=== PATIENT | female | born 1965 | race Caucasian/White ===

== ENCOUNTER 2019-05-23 17:03 | Emergency (ER) | payer BC, OTHER ==
[2016-04-02 12:39] VITALS: Wt 79.4 kg
[~2019-05-23 17:03] MED LIST: ABILIF5PT PO; ALBU8.5H12 IH; ALLO100T70 PO; ALPR-445 PO; ALPR-460 PO; AMOX-559 PO; AMOX500T10 PO; ARI2 PO; ASPI-1471 PO; CEFT1VIA63 IJ; CHOL100052 PO; DIA5 PO; DIAZ-308 PO; ESCI10TA8 PO; FLUV100C PO; FLUV100T21 PO; GABA-547 PO; HYDR-653 PO; HYDR2TAB4 PO; IBUP800T37 PO; LITH300T5 PO; MIRT-1 PO; MIRT7.5T2 PO; OMEP-218 PO; PARO-243 PO; PRED20TA6 PO; VITA0.4T11 PO
[2019-05-23] MEDS ORDERED: FLUO-176 PO (17:14)
[2019-05-23] MEDS ORDERED: DIPHTH/TETANUS/ACEL. PERTUSSIS IM ONLY ONE (17:30)
--- NOTE | 2019-05-23 17:35 | ER Report ---
History and Physical Time Seen By MD: 17:20 Hx. of Stated Complaint: cut finger on hedge trimmers HPI/ROS CHIEF COMPLAINT: Laceration to left index finger HISTORY OF PRESENT ILLNESS: 53-year-old female patient presents to emergency room with complaint of laceration to the left index finger. Patient states she was trimming her hedge with hedge trimmers when she cut her left index finger. Patient states she has a fair amount of pain. She also has some throbbing. She denies any numbness or tingling to her finger. She is able to move the finger without any problems. She states she is unsure of her last tetanus shot. Allergies: Coded Allergies: codeine (Verified Allergy, Unknown, GI DISTRESS, 05/23/19) gluten (Verified Allergy, Unknown, 05/23/19) Home Meds Active Scripts Hydrocodone Bit/Acetaminophen (HYDROCODON-ACETAMINOPHEN 5-325) 1 Each Tablet, 1 EACH PO Q4-6H PRN for PAIN, #12 TAB Prov:DIO BURTON [facility] 05/23/19 Cephalexin 500 Mg Tab (KEFLEX 500 MG TAB) 500 Mg Tablet, 500 MG PO Q6H, #28 TAB Prov:DIO BURTON [facility] 05/23/19 Reported Medications Fluoxetine Hcl (FLUOXETINE HCL) 10 Mg Capsule, 10 MG PO QDAY, CAPSULE 05/23/19 Discontinued Reported Medications Omeprazole Magnesium (PRILOSEC OTC) 20 Mg Tablet.dr, 1 TAB PO QDAY, TAB 12/07/17 Fluvoxamine Maleate (FLUVOXAMINE MALEATE) 100 Mg Cap.er.24h, 100 MG PO 12/07/17 [place] Carbonate (LITHOBID) 300 Mg Tablet.er, 300 MG PO QHS, #60 1 Refill 04/07/16 Aripiprazole (ABILIFY) 5 Mg Tablet, 5 MG PO QHS, #30 TAB 1 Refill 04/02/16 Diazepam (DIAZEPAM) 5 Mg Tablet, 5 MG PO Q6H PRN for ANXIETY, TAB 04/02/16 Discontinued Scripts Amoxicillin/Pot Clav 875-125 Mg Tab (AUGMENTIN 875-125 TABLET) 1 Each Tablet, 1 TAB PO Q12H for 10 Days, #20 TAB Prov:RISSA NUÑEZ JR, MD 12/05/17 Ibuprofen (IBUPROFEN) 800 Mg Tablet, 1 TAB PO Q8H, #30 TAB Take with food every 8 hours. 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 Patient has surgical history of bilateral mastectomy, right ear repair. Patient has a family medical history of diabetes. Reviewed Nurses Notes: Yes Hx Smoking: No Smoking Status: Never Smoker Exposure to Second Hand Smoke?: Yes (CHILDHOOD) Hx Substance Use Disorder: No Hx Alcohol Use: Yes Constitutional Vital Sign - Last 24 Hours 05/23/19 05/23/19 05/23/19 05/23/19 17:06 17:08 17:18 17:30 Pulse 106 101 Resp 18 B/P (MAP) 164/109 (127) 164/109 144/90 (108) Pulse Ox 92 94 05/23/19 05/23/19 05/23/19 05/23/19 17:33 17:48 18:00 18:03 Pulse 92 98 99 B/P (MAP) 140/89 (106) Pulse Ox 95 85 90 05/23/19 05/23/19 05/23/19 05/23/19 18:18 18:30 18:33 18:48 Pulse 92 94 87 B/P (MAP) 134/81 (98) Pulse Ox 92 90 95 05/23/19 05/23/19 05/23/19 05/23/19 18:53 19:00 19:08 19:23 Pulse ? B/P (MAP) 154/88 (110) 05/23/19 05/23/19 05/23/19 05/23/19 19:30 19:38 19:53 20:00 Pulse ? B/P (MAP) 142/85 (104) ???/??? (1665) 05/23/19 05/23/19 20:08 20:23 Pulse ? Physical Exam General appearance: Alert no distress. Respiratory: Chest is non tender, lungs are clear to auscultation. Cardiac: Regular rate and rhythm. Skin: Patient has laceration to the left index finger on the lateral side. Measures approximately 1.5 cm in length. It does go down to subcutaneous tissue. DIFFERENTIAL DIAGNOSIS: After history and physical exam differential diagnosis was considered for laceration, fracture, ligamentous injury. Medical Decision Making EKG/Imaging Imaging HAND COMPLETE LEFT Indication: Laceration to the second digit. Comparison: None Available. Findings: 3 views of the left hand. There is a mildly displaced fracture of the proximal radial corner of the distal phalanx of the second left finger. This extends to the articular surface. There is associated soft tissue disruption without radiopaque foreign body. No other bony or joint abnormality. IMPRESSION: 1. Mildly displaced fracture of the proximal radial corner of the distal phalanx of the second left finger. Soft tissue disruption. Report Dictated By: Jude Jo at 05/23/2019 6:34 PM Report E-Signed By: Jude Jo at 05/23/2019 6:37 PM ED Course/Re-evaluation ED Course Patient was admitted to exam room, history and physical were obtained. D ifferential diagnoses were considered. On examination lungs are clear, heart is regular, abdomen is soft and nontender. Patient does have a laceration to the lateral aspect of the left index finger. Patient has good strength with flexion and extension. X-rays done of the finger which shows a fracture of the proximal end of the distal phalanx on the radial side. The finger was anesthetized, cleaned and repaired described below. Patient was given a gram of Ancef through her IV. I discussed the case with Dr. Han, orthopedist. He felt that the patient can be discharged home, follow-up with Dr. Mccain on Sunday. Patient was restarted on antibiotics. I discussed plan with the patient, she verbalized understanding and agreement. We will go ahead and give her a limited supply of pain medication to help with the pain. She is to ice her finger. She is take ibuprofen as needed for pain. She is return to the emergency room if condition worsens. Patient verbalized understanding and agreement with plan. Procedure: Laceration repair. Verbal consent was obtained from the patient. The 5 cm laceration on the left index finger was anesthetized in the usual fashion. The wound was scrubbed, draped and explored to its base with a gloved finger. There were no deep structures involved. No tendon injury was identified. The wound was repaired with 9 simple interrupted sutures using 5-0 Prolene material. The wound repair was simple. The procedure was performed by myself. Procedure: Splint placement. A aluminum finger splint was applied. After application of the splint I returned and re-examined the patient. The splint was adequately immobilizing the joint and distal to the splint the patient's circulation and sensation was intact. Decision to Disposition Date: May 23, 2019 Decision to Disposition Time: 19:59 Depart Departure Latest Vital Signs Vital Signs Date Time Temp Pulse Resp B/P (MAP) Pulse Ox O2 Delivery O2 Flow Rate FiO2 05/23/19 20:23 ??? 05/23/19 20:00 ???/??? (1665) 05/23/19 18:48 95 05/23/19 17:08 18 Impression: Primary Impression: Phalanx, distal fracture of finger Additional Impression: Laceration of finger Condition: Improved Disposition: HOME OR SELF-CARE Referrals: VIV STOKES (PCP) CAROLE MCCAIN MD New Scripts Hydrocodone Bit/Acetaminophen (HYDROCODON-ACETAMINOPHEN 5-325) 1 Each Tablet 1 EACH PO Q4-6H PRN for PAIN, #12 TAB Prov: DIO BURTON 05/23/19 Cephalexin 500 Mg Tab (KEFLEX 500 MG TAB) 500 Mg Tablet 500 MG PO Q6H, #28 TAB Prov: DIO BURTON 05/23/19 Patient Instructions: Finger Fracture (ED), Finger Laceration (ED) Additional Instructions: Keep wound dry for 48 hours. Follow up with [facility] in the next 7-10 days to have sutures removed. Monitor for signs of infection; redness, swelling, heat, discharge, increasing pain or red streaking. Return to the ER with any concerns. You may change dressing as needed. Limit activity by pain. Ice the finger through the splint; 2-3 times a day for 20-30 minutes. If the splint is feeling too tight you may loosen and rewrap it. Follow up with [facility], call Sunday to make an appointment with Dr. Mccain. Keep the splint dry, wrap it with a bag and tape to keep the water out. Return to the ER with uncontrollable pain or numbness to the hand. You may take Ibuprofen as needed for pain in addition to the pain medication. Don't take any additional Tylenol while on the pain medication. Problem Qualifiers Primary Impression: Phalanx, distal fracture of finger Encounter type: initial encounter Finger: index finger Fracture type: open Fracture alignment: displaced Laterality: left Qualified Codes: S62.631B - Displaced fracture of distal phalanx of left index finger, initial encounter for open fracture Additional Impression: Laceration of finger Encounter type: initial encounter Finger: index finger Damage to nail status: without damage Foreign body presence: without foreign body Laterality: left Qualified Codes: S61.211A - Laceration without foreign body of left index finger without damage to nail, initial encounter DIO BURTON May 23, 2019 17:35
[2019-05-23] MEDS ORDERED: ceFAZolin 1 GM VIAL IVP ONE (18:40)
--- NOTE | 2019-05-23 18:44 | RADIOLOGY IMAGING REPORT ---
FACILITY: [facility] - [place], [place] PATIENT NAME: Karie Alarcon : 1965 MR: [id number] V: [id number] EXAM DATE: ORDERING PHYSICIAN: DIO BURTON TECHNOLOGIST: Location: [facility] - [place] Patient: Karie Alarcon : 1965 Visit/Account:[id number] Date of Sevice: 05/23/2019 HAND COMPLETE LEFT Indication: Laceration to the second digit. Comparison: None Available. Findings: 3 views of the left hand. There is a mildly displaced fracture of the proximal radial corner of the d istal phalanx of the second left finger. This extends to the articular surface. There is associated s oft tissue disruption without radiopaque foreign body. No other bony or joint abnormality. IMPRESSION: 1. Mildly displaced fracture of the proximal radial corner of the distal phalanx of the second left f anaid. Soft tissue disruption. Report Dictated By: Jude Jo at 05/23/2019 6:34 PM Report E-Signed By: Jude Jo at 05/23/2019 6:37 PM WSN:[id number]
[2019-05-23] MEDS ORDERED: ONDANSETRON 4 MG/2 ML VIAL ONE (19:02)
[2019-05-23] MEDS ORDERED: CEPH500T7 PO (20:03)
[2019-05-23] MEDS ORDERED: HYDR-385 PO (20:09)
== END 2019-05-23 20:11 | disposition home or self-care (01) ==
LOC: ER 17:31
DX: S61.211A Laceration without foreign body of left index finger without damage to nail, initial encounter (principal); K90.0 Celiac disease; K21.9 Gastro-esophageal reflux disease without esophagitis; F32.9 Major depressive disorder, single episode, unspecified; W29.3XXA Contact with powered garden and outdoor hand tools and machinery, initial encounter; Z79.899 Other long term (current) drug therapy
CPT/HCPCS: 12002; 73130; 90471; 90715; 96374; 99283; J0690; J2405